=== PATIENT | male | born 1960 | race Caucasian/White ===

== ENCOUNTER 2021-09-03 14:45 | Emergency (ER) | payer OTHER, MEDICARE ==
[~2021-09-03] VITALS: Ht 180.3 cm; Wt 127.0 kg
[~2021-09-03 14:45] MED LIST: ABILIFY 5 MG TAB5 MG PO; ALPRAZOLAM 0.0.25 M1; ALPRAZOLAM 0.50.5 M1 PO; AMBIEN 10 MG TA10 MG; AMOXICILLIN875 MG PO; ASPIRIN EC81 M1 PO; ATORVASTATIN CA80 MG PO; CARAFATE 1 GM TA1 G1 PO; CEPHALEXIN 500500 M3 PO; CIALIS20 MG PO; COMPAZINE25 MG RECTAL; COREG CR20 MG PO; CRESTOR40 MG PO; CYMBALTA60 MG PO; FISH OIL; FISH OIL + VIT1 EACH; FISH OIL 1,0001 EAC5 PO; FISH OIL OMEGA1 EAC1 PO; HYDROCODON-ACE1 EAC7 PO; HYDROCODON-ACE1 EAC8 PO; HYDROCODONE-AP1 EAC6 PO; IBUPROFEN 800800 M1 PO; LIPITOR80 MG; LISINOPRIL2.5 MG PO; LOW DOSE ASPIRI81 M1 PO; MIRALAX17 GM PO; NITROGLYCERIN0.4 MG SL; NITROQUICK0.4 MG; NITROSTAT0.4 M1 SUBLING; PERCOCET 5-3251 EACH PO; PERCOCET 7.5-31 EACH PO; PHENERGAN 25 MG25 M1 PO; PROTONIX40 M2 PO; ROBAXIN500 MG PO; SERTRALINE HCL100 MG PO; TRAZODONE HCL100 MG PO; VISTARIL 25 MG25 M1 PO; XANAX 0.5 MG0.5 M1 PO; ZOFRAN ODT4 MG SUBLING
[2021-09-03] MEDS ORDERED: NORVASC5 MG PO (15:02)
[2021-09-03] MEDS ORDERED: METFORMIN HCL500 M3 PO (15:03)
[2021-09-03] MEDS ORDERED: SEROQUEL XR 30300 M1 PO (15:03)
[2021-09-03] MEDS ORDERED: VITAMIN D310 MC2 PO (15:04)
[2021-09-03 15:46] LABS: ABSOLUTE NEUTROPHILS 4.3 thou/uL (1.6-8.1); HEMATOCRIT 36.4 % (42.0-52.0); RBC 4.28 mil/uL (4.50-6.00)
[2021-09-03 15:49] LABS: ABSOLUTE BASOPHILS 0.1 thou/uL (0.0-0.2); ABSOLUTE EOSINOPHILS 0.2 thou/uL (0.0-0.7); ABSOLUTE LYMPHOCYTES 1.5 thou/uL (0.8-5.3); ABSOLUTE MONOCYTES 0.7 thou/uL (0.0-1.2); BASOPHILS 1.1 %; EOSINOPHILS 2.4 %; HEMOGLOBIN 12.3 gm/dL (14.0-18.0); LYMPHOCYTES 22.6 %; MCH 28.8 pg (26.0-34.0); MCHC 33.8 g/dL (28.0-37.0); MCV 85.1 fL (80.0-100.0); MONOCYTES 10.1 %; MPV 7.3 fl. (7.2-11.1); NUCLEATED RBCS 0 /100WBC; PLATELET COUNT* 194 thou/uL (150-400); POLYS 63.8 %; RDW-CV 13.6 % (10.5-14.5); WBC 6.7 thou/uL (4.0-11.0)
--- NOTE | 2021-09-03 15:58 | EKG ---
[place] [address] ELECTROCARDIOGRAM REPORT Name: STEVAN LEÓN Room: [facility] M.R.#: [id number] Admission: Attend Phys: Discharge: Date of : 64 Date of Service: 09/03/21 1525 Report #: [id number] THIS REPORT FOR: //name// [facility] ED Test Date: 2021-09-03 Test Time: 15:25:12 Pat Name: STEVAN LEÓN Department: Room: Gender: Senior Staff Consultant: [facility] : 1960 Requested By: Rabia Gomez Order Number: [id number] MD: Marbin Barajas Measurements Intervals [place] Rate: 86 P: 33 OK: 181 QRS: -20 QRSD: 130 T: 22 QT: 431 QTc: 516 Interpretive Statements Sinus rhythm Right bundle branch block Inferior infarct, old Anterolateral infarct, age indeterminate Compared to ECG 11/17/2014 15:06:32 pvc no longer seen Myocardial infarct finding still present Electronically Signed On 09-03-2021 15:57:56 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
[2021-09-03 16:14] LABS: CALCIUM 8.4 mg/dL (8.5-10.1); CREATININE 1.1 mg/dL (0.6-1.3); POTASSIUM 3.6 mmol/L (3.5-5.1)
[2021-09-03 16:23] LABS: ALBUMIN 3.6 g/dL (3.4-5.0); TOTAL BILIRUBIN 0.4 mg/dL (<0.1-1.0); TOTAL PROTEIN 6.7 g/dL (6.4-8.2)
[2021-09-03] MEDS ORDERED: FLEXERIL PO (17:45)
[2021-09-03 18:16] VITALS: BP 161/71
== END 2021-09-03 18:17 | disposition home or self-care (01) ==
LOC: M.ERS 14:45
PROVIDERS: Physician Assistant
DX: M54.2 Cervicalgia (principal); M25.511 Pain in right shoulder